=== PATIENT | male | born 1995 | race Caucasian/White ===

== ENCOUNTER → 2016-08-15 | Outpatient (CLI) | payer OTHER ==
--- NOTE | 2016-08-15 10:39 | DIAGNOSTIC IMAGING REPORT ---
THYROID ULTRASOUND HISTORY: HYPOTHYROIDISM, FATIGUE, MAJOR DEPRESSIVE DISORDER COMPARISON: None. FINDINGS: Right lobe: 6.0 x 2.0 x 1.9 cm. No nodules. Left lobe: 5.0 x 1.7 x 1.4 cm. No nodules. Isthmus: 4 mm in thickness. No nodules. IMPRESSION: Normal thyroid ultrasound. Electronically signed by: Dave Curran M.D. 08/15/2016 10:38 AM Dictated Date/Time: 08/15/2016 10:37 AM
[2016-08-15 11:31] LABS: THYROID STIMULATING HORMONE 0.247 uIu/ml (0.300-4.500)
[2016-08-16 13:52] LABS: MICROSOMAL AB <1 IU/ML (<9)
== END | disposition home or self-care (01) ==
LOC: C.ULTR 10:10
PROVIDERS: ATTEND Nurse Practitioner Family
DX: E03.8 Other specified hypothyroidism (principal); L65.8 Other specified nonscarring hair loss; R53.83 Other fatigue; R13.10 Dysphagia, unspecified; Z80.8 Family history of malignant neoplasm of other organs or systems; F32.9 Major depressive disorder, single episode, unspecified